=== PATIENT | male | born 1985 | race Asian ===

== ENCOUNTER 2019-06-13 22:52 | Emergency (ER) | payer MEDICAID ==
[~2019-06-13] VITALS: Ht 165.1 cm; Wt 79.4 kg
[2019-06-13 23:00] VITALS: Ht 165.1 cm; Wt 79.4 kg
[2019-06-14 00:14] VITALS: BP 204/138
== END 2019-06-14 00:14 | disposition home or self-care (01) ==
LOC: ED 22:52
DX: S91.331A Puncture wound without foreign body, right foot, initial encounter (principal); I10 Essential (primary) hypertension; M10.9 Gout, unspecified; W25.XXXA Contact with sharp glass, initial encounter; Y93.89 Activity, other specified; Y92.89 Other specified places as the place of occurrence of the external cause; Y99.8 Other external cause status